=== PATIENT | male | born 1960 | race Caucasian/White ===

== ENCOUNTER 2022-04-06 15:42 | Emergency (ER) | payer OTHER ==
[~2022-04-06] VITALS: Ht 188 cm; Wt 95.3 kg
[2022-04-06] MEDS ORDERED: ALLOPURINOL100 MG PO (15:54)
[2022-04-06] MEDS ORDERED: LISINOPRIL5 MG PO (15:54)
== END 2022-04-06 19:01 | disposition home or self-care (01) ==
LOC: ER 15:42
DX: S91.129A Laceration with foreign body of unspecified toe(s) without damage to nail, initial encounter (principal); W45.8XXA Other foreign body or object entering through skin, initial encounter; W22.8XXA Striking against or struck by other objects, initial encounter; Y93.18 Activity, surfing, windsurfing and boogie boarding; Y92.89 Other specified places as the place of occurrence of the external cause

== ENCOUNTER 2022-04-15 17:56 | Emergency (ER) | payer OTHER ==
[~2022-04-15] VITALS: Ht 188 cm; Wt 113.4 kg
[~2022-04-15 17:56] MED LIST: ALLOPURINOL100 MG PO; LISINOPRIL5 MG PO
== END 2022-04-15 21:29 | disposition home or self-care (01) ==
LOC: ER 17:56
DX: Z48.02 Encounter for removal of sutures (principal)